=== PATIENT | female | born 1985 | race Hispanic/Latino ===

== ENCOUNTER 2017-08-21 08:09 | Observation (INO) | payer MEDICAID ==
[2016-02-19 11:51] VITALS: BMI 19.7
[2017-08-21] MEDS ORDERED: Propofol 10 mg/ml 1,000 MG/100 ML VIAL ONE (08:28)
[2017-08-21] MEDS ORDERED: Propofol 10 mg/ml Inj (20 ML) ONE (08:30)
[2017-08-21] MEDS ORDERED: Midazolam 2 MG/2 ML VIAL ONE (08:30)
[2017-08-21] MEDS ORDERED: Sodium Chloride 0.9% 20 ML IV ONE (08:38)
[2017-08-21] MEDS ORDERED: Clindamycin 2% Vaginal Cream(40 gm) ONE (08:40)
[2017-08-21] MEDS ORDERED: Bupivacaine 0.5%/Epi 1:200,000 (10 ML SOL) ONE (08:40)
[2017-08-21] MEDS ORDERED: Bacitracin 50,000 UNIT in Sodium Chloride 0.9% Irrig 1,000 ML IR SCH (08:45)
[2017-08-21] MEDS: ceFAZolin 1 gm in NS 1 GM/100 ML BAG IVPB ONE ×2 (08:46→09:52)
--- NOTE | 2017-08-21 10:31 | PCM.OP ---
Operative Report - Operative Report Date of Surgery/Procedure: 08/21/17 Time of Surgery/Procedure: 10:23 Surgeon: Jassi Donovan MD Director Of Flight Operations: Ines PRINCE Anesthesia/Sedation: Gen with LMA Pre-Operative Diagnosis: Urinary incontinence stress Post-Operative Diagnosis: Urinary incontinence stress. Hypermobile urethra Indication for Surgery: Worsening involnetrary leakage of urine with excertion coughing and sneezing Operative Findings: Hypermobile urethra Procedure/Operation Description: Midurethral sling (using Solyx mesh sling by [employer]). Diagnostic cystoscopy. Detailed operative procedure . This is a 31 years old female with long-standing and worsening symptoms of stress urinary incontinence for many years. The patient reported this symptoms to be debilitating and adversely affecting her quality of life. The patient is reporting leakage of urine upon any exertion, coughing sneezing. For several years these symptoms of severe leakage of urine on exertion have worsened. A complete work up in the office which included an ultrasound and urodynamic study revealed a clear picture of stress urinary incontinence. Following the workup and long discussion or the surgical vs conservative options, the patient had a long period of conservative management which included weight loss, Kegel exercises, and pelvic floor rehabilitation exercises with abdomen full improvement in symptoms of incontinence. A decision was made to proceed with a mid urethral sling procedure using mesh material. The patient underwent total robotic hysterectomy AND vaginal suspension to correct uterine prolapse. Currently, following her robotic hysterectomy and suspension her symptoms of stress urinary incontinence are persistent and in need of further surgical management. After a deteiled discussion regarding the pros and cons of sling prodedure and the utilization of mesh material, all risks were reviewed including, risk of infection, mesh errosion, pain and dyspareunia. In addition, the FDA warning about mesh utilization for prolapse and incontinence surgery was reveiwed in details, and specific written consent was obtained. The patient elected to proceed with a midurethral sling today fully understanding the risk associated with utilizing mesh material. Other alternatives were also offered to the patient, including a biological graft such as porcine sling as well as the patient owns fascia as sling material, she elected to proceed with a mesh sling despite associated risks. After proper consent was obtained from the patient, patient was taken to the operating room where general anesthesia was obtained without difficulty. She was placed in the dorsal lithotomy position, her legs were placed in adjustable Chris stirrups, careful attention was placed not to over flex or over rotate The lower extremities. Washburn catheter was inserted under sterile conditions. She was prepped and draped appropriately for a mid urethral sling procedure. The anterior vaginal wall over the midurethral area was grasped with a pair of Allis clamps and tenting the vaginal wall from the underlying urethra. Local anesthetic solution of 0.25% Marcaine with epinephrine diluted 1:1 was used to infiltrate the periurethral space. A total of 20 cc was utilized. Using a scalpel, a midurethral vertical incision about 1 cm was made through the vaginal epithelium and periurethral fascia. Careful lateral sharp dissection using Metzenbaum scissors towards the inferior pubic ramus to eventually allowe the sling graft to lie flat against the urethra. Next , the sling mesh was loaded onto the needle tip. The needle tip was inserted through one side of the incision towards the medial edge of the obturator foramen approximately 45 degrees of the horizontal plane. Using an arching motion, the needle tip was advanced through pushing the obturator internus muscle. The needle was released from the graft and loaded on the other side of the sling ready for deployment to the contralateral side. Ensuring the sling is flat on the urethra and not twisted, the needle was advanced in an arching motion towards the obturator internus muscle on the opposite site. Attention was readdressed to allow a flat placement with tension- free sling on the midurethra. Following saline irrigation and good hemostasis was noted, the vaginal mucosa was closed with 2-0 Vicryl in a locking fashion. At this time, the Washburn catheter was removed and a diagnostic cystoscopy was performed. The bladder was distended with about 300 cc of fluid. Both ureteral orifices were noted to be fluxing urine normally. The trigone was normal. There were no noted abnormalities with any evidence of any compromise of the lower urinary tract with mesh material, sutures or instruments. The patient emerged from general anesthesia without any difficulty. The patient was taken to the recovery room in stable condition. Prior to incision patient received prophylactic antibiotics , prior to closure sponge lap and needle counts are correct x2. Estimated Blood Loss: 5 Blood Replaced: none Sponge/Instrument Count: count correct times 2 Drains: none Complications: none Specimen: none Discharge & Condition: discharge home same day with criteria for discharge
[2017-08-21] MEDS ORDERED: Oxycodone/Acetaminophen 5/325 mg Tab PO PRN (10:34)
[2017-08-21] MEDS ORDERED: Morphine 4 MG/ML VIAL IVP PRN ×2 (10:34→19:00)
[2017-08-21] MEDS ORDERED: HYDROmorphone 0.5 mg/0.5 ml ISec IVP PRN (10:36)
[2017-08-21] MEDS ORDERED: Sodium Chloride 0.9% 1,000 ML IV SCH (10:45)
[2017-08-21] MEDS ORDERED: HYDROmorphone 1 mg/ml ISec ONE (10:46)
[2017-08-21] MEDS ORDERED: Lactated Ringer's 500 ML IV ONE (11:55)
[2017-08-21] MEDS ORDERED: CeFAZolin 1 gm in NS 100ml IVPB ONE (15:45)
[2017-08-21] MEDS ORDERED: Sodium Chloride 0.9% 1,000 ML IV ONE (15:50)
[2017-08-21] MEDS ORDERED: ceFAZolin IV 1 gm in Dextrose 1 GM/50 ML BAG IVPB SCH (16:30)
[2017-08-21] MEDS: Oxycodone/Acetaminophen 5/325 mg Tab PO PRN ×2 (19:29→23:50)
[2017-08-21] MEDS ORDERED: ceFAZolin 1 GM in Sodium Chloride 0.9% 100 ML IVPB SCH (21:00)
[2017-08-22] MEDS ORDERED: ceFAZolin 1 GM in Sodium Chloride 0.9% 100 ML IVPB SCH
[2017-08-22] MEDS: Oxycodone/Acetaminophen 5/325 mg Tab PO PRN ×2 (04:06→14:04)
[2017-08-22 09:40] VITALS: BP 89/52; PULSE 65; RESP 18; TEMP 98.2; O2SAT 98
== END 2017-08-22 15:30 | disposition home or self-care (01) ==
LOC: C.SDS 08:09 → C.9S 15:04 → UNDODISOB 17:12 → C.4M 17:35
PROVIDERS: ADMIT Obstetrics & Gynecology; ATTEND Obstetrics & Gynecology
DX: N39.3 Stress incontinence (female) (male) (principal); N36.41 Hypermobility of urethra; M54.9 Dorsalgia, unspecified; F41.9 Anxiety disorder, unspecified; R35.0 Frequency of micturition; R10.31 Right lower quadrant pain
CPT/HCPCS: 52000; 57288; C1771; C2615; G0378; J0690; J1100; J1170; J1885; J2001; J2250; J2405; J2704; J3010; J7040; J7120